=== PATIENT | male | born 1975 ===

== ENCOUNTER 2025-06-08 08:17 | Outpatient (RCR) | payer BC, SELFPAY | END 2025-06-08 23:59 | disposition home or self-care (01) | LOC: RPT 08:17 | PROVIDERS: ATTENDING PHYSICIAN Obstetrics & Gynecology; FAMILY PHYSICIAN Family Medicine | DX: N39.3 Stress incontinence (female) (male) (principal); R15.1 Fecal smearing; R10.2 Pelvic and perineal pain; Z73.6 Limitation of activities due to disability; M62.81 Muscle weakness (generalized) | CPT/HCPCS: 97163; 97530 ==

== ENCOUNTER 2025-07-23 09:22 | Outpatient (RCR) | payer BC, SELFPAY | END 2025-07-23 23:59 | disposition home or self-care (01) | LOC: RPT 09:22 | PROVIDERS: ATTENDING PHYSICIAN Obstetrics & Gynecology; FAMILY PHYSICIAN Family Medicine | DX: N39.3 Stress incontinence (female) (male) (principal); R15.1 Fecal smearing; R10.2 Pelvic and perineal pain; Z73.6 Limitation of activities due to disability; M62.81 Muscle weakness (generalized) | CPT/HCPCS: 97110; 97112; 97140; 97530 ==

== ENCOUNTER 2025-08-24 12:02 | Outpatient (RCR) | payer BC, SELFPAY | END 2025-08-24 23:59 | disposition home or self-care (01) | LOC: RPT 12:02 | PROVIDERS: ATTENDING PHYSICIAN Obstetrics & Gynecology; FAMILY PHYSICIAN Family Medicine | DX: N39.3 Stress incontinence (female) (male) (principal); R15.1 Fecal smearing; R10.20 Pelvic and perineal pain unspecified side; R10.2 Pelvic and perineal pain; Z73.6 Limitation of activities due to disability; M62.81 Muscle weakness (generalized) | CPT/HCPCS: 97014; 97110; 97112; 97530 ==

== ENCOUNTER 2025-09-24 06:44 | Outpatient (RCR) | payer BC, SELFPAY | END 2025-09-24 23:59 | disposition home or self-care (01) | LOC: RPT 06:44 | PROVIDERS: ATTENDING PHYSICIAN Obstetrics & Gynecology; FAMILY PHYSICIAN Family Medicine | DX: N39.3 Stress incontinence (female) (male) (principal); R15.1 Fecal smearing; R10.20 Pelvic and perineal pain unspecified side; R10.2 Pelvic and perineal pain; Z73.6 Limitation of activities due to disability; M62.81 Muscle weakness (generalized) | CPT/HCPCS: 97014; 97112; 97530 ==